=== PATIENT | female | born 1995 | race African-American/Black ===

== ENCOUNTER 2019-04-17 13:49 | Emergency (ER) | payer OTHER ==
[~2019-04-17] VITALS: Ht 162.6 cm; Wt 68.0 kg
[2019-04-17 13:50] VITALS: BP 122/70
[2019-04-17] MEDS ORDERED: Ketorolac 30mg Inj IM ONE (14:45)
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
--- NOTE | 2019-04-17 15:40 | NUR ---
ED Nurse Note: Lindsey okay to DC patient without collecting urine sample at this time.
[2019-04-17] MEDS ORDERED: IBU800 MG PO (15:41)
[2019-04-17] MEDS ORDERED: ROBAXIN-500MG ORAL (15:41)
[2019-04-17 15:45] VITALS: BP 135/70
== END 2019-04-17 15:45 | disposition home or self-care (01) ==
LOC: EDBD 13:49 → EMR 15:38
DX: S16.1XXA Strain of muscle, fascia and tendon at neck level, initial encounter (principal); S39.012A Strain of muscle, fascia and tendon of lower back, initial encounter; V43.52XA Car driver injured in collision with other type car in traffic accident, initial encounter; Y92.410 Unspecified street and highway as the place of occurrence of the external cause
CPT/HCPCS: 72020; 72040; 96372; J1885; Z7502; 99284

== ENCOUNTER 2019-09-01 19:05 | Emergency (ER) | payer BC, OTHER ==
[~2019-09-01] VITALS: Ht 157.5 cm; Wt 63.5 kg
[~2019-09-01 19:05] MED LIST: IBU800 MG PO; ROBAXIN-500MG ORAL
[2019-09-01 19:55] VITALS: BP 116/60
--- NOTE | 2019-09-01 19:55 | NUR ---
ED Nurse Note: Pt walked into ED c/o sharp pain on left arm and shoulder x 3 days. Stated that pain is increasing. As per pt, this pain started after she carries her lugagges. Pt able to move her arm but with limitation. VSS.
--- NOTE | 2019-09-01 19:59 | NUR ---
ED Nurse Note: ERPA at bedside.
--- NOTE | 2019-09-01 20:00 | Emergency Room Report ---
History of Present Illness General Chief Complaint: Upper Extremity Injury Source: Patient Present Illness HPI 24-year-old female with no significant past medical history here complaining of left shoulder pain x4 days after lifting heavy objects at work. Patient has range of motion complains of intermittent tingling. Denies any fall or injury. No impingement sign noted. Has not taken medication for symptom relief. Rates the pain 5 out of 10 without radiation. Denies other injuries. Denies at this time Allergies: Coded Allergies: No Known Allergies (Unverified , 04/17/19) Patient History Past Medical History: see triage record Past Surgical History: unable to obtain Pertinent Family History: none Last Menstrual Period: 08/12/2018 Now: No Immunizations: UTD Reviewed Nursing Documentation: PMH: Agreed; PSxH: Agreed Nursing Documentation-PMH Past Medical History: No Stated History Review of Systems All Other Systems: negative except mentioned in HPI Physical Exam Vital Signs Date Time Temp Pulse Resp B/P (MAP) Pulse Ox O2 Delivery O2 Flow Rate FiO2 09/01/19 19:48 75 16 116/60 (78) 98 Room Air Sp02 EP Interpretation: reviewed, normal General Appearance: no apparent distress, alert, GCS 15, non-toxic Head: normocephalic, atraumatic Eyes: bilateral eye normal inspection, bilateral eye PERRL ENT: hearing grossly normal, normal pharynx, no angioedema, normal voice Neck: full range of motion, supple, no meningismus, no bony tend, supple/symm/ no masses Respiratory: chest non-tender, lungs clear, normal breath sounds, no rhonchi, no respiratory distress, no retraction, no accessory muscle use, no wheezing, speaking full sentences Cardiovascular #1: regular rate, rhythm, no edema, no murmur, normal capillary refill Gastrointestinal: soft, no mass, no bruit Rectal: deferred Genitourinary: no CVA tenderness Musculoskeletal: back normal, normal range of motion, no calf tenderness, gait/ station normal, non-tender Neurologic: alert, motor strength/tone normal, oriented x3, sensory intact, responsive, speech normal Psychiatric: judgement/insight normal, memory normal, mood/affect normal, no suicidal/homicidal ideation Skin: no rash Lymphatic: no adenopathy Medical Decision Making PA Attestation All my diagnosis and treatment plans were reviewed ad discussed with my supervising physician Dr. Pereira Diagnostic Impression: Primary Impression: Shoulder sprain ER Course 24-year-old female with no significant past medical history here complaining of left shoulder pain x4 days after lifting heavy objects at work. Patient has range of motion complains of intermittent tingling. Denies any fall or injury. No impingement sign noted. Has not taken medication for symptom relief. Rates the pain 5 out of 10 without radiation. Denies other injuries. Denies at this time Ddx considered but are not limited to : Shoulder sprain versus strain versus fracture versus impingement Vital signs: are WNL, pt. is afebrile H&PE are most consistent with: Left shoulder sprain ORDERS: No x-ray necessary as patient has full range of motion there was no trauma, Motrin, Robaxin ED INTERVENTIONS: None DISCHARGE: At this time pt. is stable for d/c to home. Will provide printed patient care instructions, and any necessary prescriptions. Care plan and follow up instructions have been discussed with the patient prior to discharge. Patient to follow-up primary care provider, take medication as directed, physical therapy may help, if continues to have tingling MRI may be needed. At this time This is a patient of all injured herself and avoid tenderness noted and has range of motion. Last Vital Signs Date Time Temp Pulse Resp B/P (MAP) Pulse Ox O2 Delivery O2 Flow Rate FiO2 09/01/19 19:48 75 16 116/60 (78) 98 Room Air Disposition: HOME, SELF-CARE Condition: Stable Scripts Methocarbamol* (ROBAXIN-500*) 500 Mg Tablet 500 MG ORAL TID PRN for For Pain, #15 TAB 0 Refills Prov: Lindsey Keller 09/01/19 Ibuprofen* (MOTRIN*) 600 Mg Tablet 600 MG ORAL Q8H PRN for For Pain, #30 TAB 0 Refills Prov: Lindsey Keller 09/01/19 Patient Instructions: Shoulder Sprain Additional Instructions: Take medication as directed, follow-up with primary care provider, avoid strenuous physical activity, MRI may be needed if continues to have tingling. This time no x-ray needed as you have full range of motion no bony tenderness noted. Lindsey Keller Sep 01, 2019 20:00
[2019-09-01] MEDS ORDERED: ROBAXIN-500MG ORAL (20:01)
[2019-09-01] MEDS ORDERED: IBUPROFEN600 MG ORAL (20:01)
[2019-09-01 20:14] VITALS: BP 116/60
--- NOTE | 2019-09-01 20:14 | NUR ---
ED Nurse Note: Pt cleared by ERMD for discharge. DC instructions/prescription was given and explained to pt and verbalized understanding of teachings. All medical deviecs such as ID band removed. Pt is AAO x4, ambulatory and left with all personal belongings.
== END 2019-09-01 20:14 | disposition home or self-care (01) ==
LOC: EMR 20:14
DX: S43.402A Unspecified sprain of left shoulder joint, initial encounter (principal); X50.0XXA Overexertion from strenuous movement or load, initial encounter; Y93.89 Activity, other specified; Y92.9 Unspecified place or not applicable
CPT/HCPCS: 99282